=== PATIENT | male | born 1990 | race Caucasian/White ===

== ENCOUNTER 2017-09-10 20:29 | Emergency (ER) | payer OTHER, SELFPAY ==
[2017-09-10] MEDS ORDERED: Acetaminophen 500 MG TAB ONE (20:37)
--- NOTE | 2017-09-10 21:16 | RAD ---
RIGHT HAND THREE VIEWS: 09/10/17 HISTORY: Trauma to hand. There is deformity to the fifth metacarpal consistent with an old fracture. There is no signs of acut e fracture or dislocation. IMPRESSION: Old fifth metacarpal fracture. POS: [facility]
== END 2017-09-10 21:16 | disposition home or self-care (01) ==
LOC: SCSER 20:29
DX: S60.221A Contusion of right hand, initial encounter (principal); F17.210 Nicotine dependence, cigarettes, uncomplicated; W31.9XXA Contact with unspecified machinery, initial encounter